=== PATIENT | female | born 1960 | race Caucasian/White ===

== ENCOUNTER 2020-07-01 15:04 | Inpatient (IN) | payer MEDICARE, OTHER ==
[~2020-07-01] VITALS: Ht 170.2 cm; Wt 74.8 kg
[2020-07-01 15:38] LABS: HEMOGLOBIN 13.6 gm/dl (12.3-15.3); RED BLOOD COUNT 4.4 M/UL (4.00-5.10); WHITE BLOOD COUNT 16.5 K/UL (4.5-11.0)
[2020-07-01 16:08] LABS: BUN/CREATININE RATIO 25 (0-10)
[2020-07-01] MEDS ORDERED: PROTONIX40 MG PO (20:15)
[2020-07-01] MEDS ORDERED: NEURONTIN400 MG PO (20:15)
[2020-07-01] MEDS ORDERED: CLEOCIN HCL300 MG PO (20:16)
--- NOTE | 2020-07-01 23:19 | NUR ---
POTASSIUM WAS DISCOVERED TO BE 3.2. PT WAS ASKED IF THEY GAVE HER ANY POTASSIUM REPLACEMENT IN THE ER. PT STATED THAT THEY GAVE HER "TWO PILLS" FOR HER POTASSIUM. PT REFUSED TO TAKE ANYMORE REPLACEMENT PROTOCOL.
[2020-07-02 06:06] LABS: HEMOGLOBIN 11.9 gm/dl (12.3-15.3); WHITE BLOOD COUNT 14.3 K/UL (4.5-11.0)
[2020-07-02 06:08] LABS: RED BLOOD COUNT 3.94 M/UL (4.00-5.10)
[2020-07-02 06:22] LABS: BUN/CREATININE RATIO 25 (0-10)
[2020-07-03 05:30] LABS: BUN/CREATININE RATIO 13 (0-10)
--- NOTE | 2020-07-03 05:54 | NUR ---
PER AMEYA IN PHARMACY, PAVILLION TO RUN VANCOCIN AND CEFEPIME IV PIGGYBACK.
[2020-07-03 09:11] LABS: HEMOGLOBIN 11.3 gm/dl (12.3-15.3); RED BLOOD COUNT 3.74 M/UL (4.00-5.10)
[2020-07-03 09:15] LABS: WHITE BLOOD COUNT 10.7 K/UL (4.5-11.0)
[2020-07-04 04:20] LABS: HEMOGLOBIN 11.1 gm/dl (12.3-15.3); RED BLOOD COUNT 3.64 M/UL (4.00-5.10); WHITE BLOOD COUNT 9.3 K/UL (4.5-11.0)
[2020-07-04 04:39] LABS: BUN/CREATININE RATIO 18 (0-10)
--- NOTE | 2020-07-05 05:41 | NUR ---
LAB ALERTED THAT VANC TROUGH HAD NOT BEEN DRAWN OF 0530 ON 07/05/20.
[2020-07-05 06:05] LABS: HEMOGLOBIN 10.8 gm/dl (12.3-15.3); RED BLOOD COUNT 3.55 M/UL (4.00-5.10)
[2020-07-05 06:20] LABS: BUN/CREATININE RATIO 18 (0-10)
[2020-07-05 06:28] LABS: WHITE BLOOD COUNT 5.8 K/UL (4.5-11.0)
--- NOTE | 2020-07-05 10:55 | NUR ---
LEFT ELBOW SURGICAL SITE EXAMINED AFTER DR. JOHNSON REMOVED DRESSING AND DRAIN. PATIENT'S ELBOW IS SWOLLEN, AREA IS SLIGHTLY REDDENED, BUT NOT AROUND INCISION SITE. REDNESS IS GENERALIZED. LARGE AMOUNT OF SEROSANGUINOUS DRAINAGE NOTED. SUTURES NOTED TO AREA. APPLIED ABD PAD, AND WRAPPED WITH CANDACE WRAP PER DR. JOHNSON INSTRUCTIONS. WILL REDRESS PRN.
[2020-07-06 04:49] LABS: RED BLOOD COUNT 3.64 M/UL (4.00-5.10); WHITE BLOOD COUNT 5.7 K/UL (4.5-11.0)
[2020-07-06 05:07] LABS: BUN/CREATININE RATIO 21 (0-10)
[2020-07-07 03:03] LABS: HEMOGLOBIN 11.8 gm/dl (12.3-15.3); RED BLOOD COUNT 3.9 M/UL (4.00-5.10); WHITE BLOOD COUNT 6.6 K/UL (4.5-11.0)
[2020-07-07 03:26] LABS: BUN/CREATININE RATIO 19 (0-10)
[2020-07-07] MEDS ORDERED: GLUCOPHAGE 500500 MG PO (08:32)
[2020-07-07] MEDS ORDERED: VANCOMYCIN1 GM/2501 IV (14:13)
--- NOTE | 2020-07-07 17:14 | NUR ---
REPORT CALLED L[facility]ONT AT [facility] NOTIFIED OF PATIENT DISCHARGE
== END 2020-07-07 19:50 | disposition home or self-care (01) | DRG 501 ==
LOC: ER1 15:04 → CDU 16:41 → M/S 16:41
PROVIDERS: Emergency Medicine; Physician Assistant; ADMIT Internal Medicine
PROC: 0MB40ZZ Excision of Left Elbow Bursa and Ligament, Open Approach (ICD-10-PCS; principal; 2020-07-04)
PROC: 0RBM0ZZ Excision of Left Elbow Joint, Open Approach (ICD-10-PCS; 2020-07-04)
DX: M00.022 Staphylococcal arthritis, left elbow (principal); Z16.39 Resistance to other specified antimicrobial drug; M00.9 Pyogenic arthritis, unspecified; E11.40 Type 2 diabetes mellitus with diabetic neuropathy, unspecified; F17.210 Nicotine dependence, cigarettes, uncomplicated; Z20.822 Contact with and (suspected) exposure to COVID-19; E11.65 Type 2 diabetes mellitus with hyperglycemia; D64.9 Anemia, unspecified; K21.9 Gastro-esophageal reflux disease without esophagitis; B95.7 Other staphylococcus as the cause of diseases classified elsewhere; Z88.0 Allergy status to penicillin; Z79.84 Long term (current) use of oral hypoglycemic drugs
CPT/HCPCS: 36415; 71045; 73080; 80048; 80053; 80202; 81001; 82962; 83036; 83605; 83735; 85025; 85027; 85652; 86140; 87040; 87070; 87077; 87186; 87205; 93005; 96365; 96366; 96375; 99285; J0692; J1100; J2001; J2250; J2704; J2765; J3010; J3370; J7030; J7070; J7120; U0002

== ENCOUNTER 2020-07-15 15:04 | Emergency (ER) | payer MEDICARE, OTHER ==
[~2020-07-15 15:04] MED LIST: CLEOCIN HCL300 MG PO; GLUCOPHAGE 500500 MG PO; NEURONTIN400 MG PO; PROTONIX40 MG PO; VANCOMYCIN1 GM/2501 IV
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
== END 2020-07-15 18:58 | disposition home or self-care (01) ==
LOC: ER1 15:04
DX: T82.514A Breakdown (mechanical) of infusion catheter, initial encounter (principal); E11.9 Type 2 diabetes mellitus without complications; F17.200 Nicotine dependence, unspecified, uncomplicated; Z98.890 Other specified postprocedural states; Z88.0 Allergy status to penicillin; Z88.6 Allergy status to analgesic agent; Z88.8 Allergy status to other drugs, medicaments and biological substances; Y82.8 Other medical devices associated with adverse incidents
CPT/HCPCS: 99283; C1751

== ENCOUNTER → 2020-07-23 | Outpatient (CLI) | payer MEDICARE, OTHER | LOC: OPSV 10:19 | DX: M70.22 Olecranon bursitis, left elbow (principal) | CPT/HCPCS: G0463 ==